=== PATIENT | male | born 1960 | race African-American/Black ===

== ENCOUNTER 2024-03-22 15:01 | Emergency (ER) | payer OTHER ==
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
[2024-03-22] MEDS: SULFAMETHOX-TMP 800-160MG 1 EACH TAB PO STA (18:21)
[2024-03-22] MEDS: AMOXIC-POT CLAV 875-125MG 1 EACH TAB PO STA (18:21)
[2024-03-22] MEDS: IBUPROFEN 600 MG TAB PO STA (18:21)
[2024-03-22 18:33] VITALS: BP 168/78; PULSE 78; RESP 18; TEMP 98
== END 2024-03-22 18:33 | disposition home or self-care (01) ==
LOC: EC 15:01
DX: L02.01 Cutaneous abscess of face (principal)
CPT/HCPCS: 99283